=== PATIENT | female | born 1945 | race African-American/Black ===

== ENCOUNTER 2020-08-17 14:06 | Emergency (ER) | payer BC, MEDICARE ==
[~2020-08-17] VITALS: Ht 157.5 cm; Wt 118.0 kg
[~2020-08-17 14:06] MED LIST: CHOL10003 PO; CYAN-25 PO; MODA200T31 PO; MULT-445 PO; TRAV5DRO EACHEYE; UBID100C26 PO; VITA-8 PO
--- NOTE | 2020-08-17 14:38 | RAD ---
KNEE RIGHT 3V History: Right knee pain off and on Comparison: None. Findings: 3 views of the right knee are submitted. There is right total knee arthroplasty. No acute fracture or dislocation is identified. There is increased calcification in the suprapatellar recess. Impression: 1. No acute osseous abnormality is identified. There is right total knee arthroplasty. There is increased calcification in the suprapatellar recess. Electronically signed by: Nicolas Modi MD (08/17/2020 2:36 PM) [facility]
[2020-08-17] MEDS ORDERED: CYCL10TA2 PO (16:25)
[2020-08-17] MEDS ORDERED: HYDR-2761 PO (16:25)
--- NOTE | 2020-08-17 16:25 | PHYS DOC ---
Past Medical History Past Medical History: Other Additional Past Medical Histor: narcolepsy Past Surgical History: , Hysterectomy, Other Additional Past Surgical Histo: hernia repair, gastric bypass, bilat carpal tunnel, shoulder replacement Smoking Status: Never Smoker Alcohol Use: None Drug Use: None General Adult EDM: Chief Complaint: LOWER EXT PAIN HPI: HPI: Patient is a 75 year old female with history of hypertension who presents to the ED today complaining of moderate pain to the right low back radiating to the right lower extremity that is chronic but states has gotten worse in the last couple days. Patient states the pain is worse when she ambulates. Denies any known injury. Denies any loss of bowel/bladder function. Denies anything specifically relieving the pain, she states she has tried taking her tramadol including doubling the dose with no relief. Review of Systems: Review of Systems: Constitutional: Denies fever or chills. [] GI: Denies abdominal pain, nausea, vomiting, bloody stools or diarrhea. [] : Denies dysuria. [] Musculoskeletal: Reports right low back pain radiating to the right lower extremity Integument: Denies rash. [] Neurologic: Denies headache, focal weakness or sensory changes. [] Psychiatric: Denies depression or anxiety. [] Heart Score: Risk Factors: Risk Factors: DM, Current or recent (<one month) smoker, HTN, HLP, family history of CAD, obesity. Risk Scores: Score 0 - 3: 2.5% MACE over next 6 weeks - Discharge Home Score 4 - 6: 20.3% MACE over next 6 weeks - Admit for Clinical Observation Score 7 - 10: 72.7% MACE over next 6 weeks - Early Invasive Strategies Allergies: Allergies: Allergies Coded Allergies Type Severity Reaction Last Updated Verified No Known Drug Allergies 02/27/15 No Physical Exam: PE: Constitutional: Well developed, well nourished, no acute distress, non-toxic appearance. [] Abdomen: Bowel sounds normal, soft, no tenderness, no masses, no pulsatile masses. [] Skin: Warm, dry, no erythema, no rash. [] Back: Diffuse paraspinal muscle tenderness to the right lumbar spine pain, no midline lumbar spine tenderness, no CVA tenderness. [] Extremities: No tenderness, no cyanosis, no clubbing, ROM intact, no edema. [] Neurologic: Alert and oriented X 3, normal motor function, normal sensory function, no focal deficits noted. [] Psychologic: Affect normal, judgement normal, mood normal. [] EKG: EKG: [] Radiology/Procedures: Radiology/Procedures: []PROCEDURE: KNEE RIGHT 3V KNEE RIGHT 3V History: Right knee pain off and on Comparison: None. Findings: 3 views of the right knee are submitted. There is right total knee arthroplasty. No acute fracture or dislocation is identified. There is increased calcification in the suprapatellar recess. Impression: 1. No acute osseous abnormality is identified. There is right total knee arthroplasty. There is increased calcification in the suprapatellar recess. Electronically signed by: Jf Cody MD (08/17/2020 2:36 PM) [facility] DICTATED and SIGNED BY: JF CODY MD DATE: 08/17/20 1436 Course & Med Decision Making: Course & Med Decision Making Pertinent Labs and Imaging studies reviewed. (See chart for details) This is a 75-year-old female patient presenting to the ED today with sciatica pain. Was discharged to home and follow-up with the PCP. Patient has no injury, no cauda equina syndrome symptoms. Dragon Disclaimer: Dragon Disclaimer: This electronic medical record was generated, in whole or in part, using a voice recognition dictation system. Departure Departure Impression: Primary Impression: Sciatica of right side Disposition: 01 DC HOME SELF CARE/HOMELESS Condition: STABLE Referrals: UNKNOWN PCP NAME (PCP) follow up with your doctor in one week Patient Instructions: Sciatica with [facility] Additional Instructions: You were evaluated in the emergency room for sciatic pain. Take the prescribed medications as ordered. Follow-up with your doctor in 1 to 2 weeks Scripts Cyclobenzaprine Hcl (CYCLOBENZAPRINE HCL) 10 Mg Tablet 1 TAB PO TID, #30 TAB Prov: EZIO VILLEGAS APRN 08/17/20 Hydrocodone Bit/Acetaminophen (HYDROCODONE-APAP 5-325 ) 1 Tab Tablet 1 TAB PO PRN Q6HRS PRN for PAIN, #10 TAB 0 Refills Prov: EZIO VILLEGAS [employer] 08/17/20 EZIO VILLEGAS APRN Aug 17, 2020 16:25
[2020-08-17 16:57] VITALS: BP 145/73
[2020-08-17] MEDS ORDERED: diazePAM 5 MG TABLET ONE (17:15)
[2020-08-17] MEDS ORDERED: diazePAM 5 MG TABLET PO ONE (17:15)
[2020-08-17] MEDS ORDERED: HYDROcodone/APAP 5/325MG 1 TAB TABLET ONE (17:15)
[2020-08-17] MEDS ORDERED: HYDROcodone/APAP 5/325MG 1 TAB TABLET PO ONE (17:15)
== END 2020-08-17 17:00 | disposition home or self-care (01) ==
LOC: ER 14:06
DX: M54.41 Lumbago with sciatica, right side (principal); M25.561 Pain in right knee; I10 Essential (primary) hypertension; G47.419 Narcolepsy without cataplexy; Z90.710 Acquired absence of both cervix and uterus; Z98.890 Other specified postprocedural states
CPT/HCPCS: 73562; 99284